=== PATIENT | female | born 1960 | race African-American/Black ===

== ENCOUNTER 2016-11-03 06:13 | Emergency (ER) | payer OTHER ==
[2016-11-03 06:44] VITALS: BP 105/65; PULSE 62; TEMP 98.5; BMI 21.4
[2016-11-03 07:14] LABS: URINE APPEARANCE SLCLOUDY; URINE BILIRUBIN NEGATIVE (NEGATIVE); URINE COLOR LTYELLOW; URINE GLUCOSE (UA) NEGATIVE (NEGATIVE); URINE KETONE NEGATIVE (NEGATIVE); URINE NITRITE NEGATIVE (NEGATIVE); URINE PROTEIN NEGATIVE (NEGATIVE); URINE UROBILINOGEN NEGATIVE E.U./dl (0.2-1.0)
[2016-11-03 07:16] LABS: URINE BLOOD 2+ (NEGATIVE); URINE LEUK ESTERASE 3+ (NEGATIVE)
[2016-11-03 07:18] LABS: URINE BACTERIA MODERATE /hpf (NONE SEEN); URINE RBC 73 /hpf (0-3); URINE WBC 172 /hpf (3-5)
--- NOTE | 2016-11-03 07:30 | PDOC ---
History of Present Illness - General Chief Complaint: Urinary Problem Stated Complaint: URINARY PROBLEM Time Seen by Provider: 11/03/16 07:25 History Source: Patient Exam Limitations: No Limitations - History of Present Illness Initial Comments: 11/03/16 07:30 This patient is a 56-year-old female with no significant past medical history presenting to the emergency department with a complaint of dysuria. Patient states she was in her usual state of health until this morning when she noted frequency, urgency and burning. Pt reports suprapubic pressure No lower abdominal pain No flank pain No fevers or chills Pt had a uti she believes she caught it from him PMH: denies PSH: right 5th finger surgery Meds: denies ALL: NKDA Social: denies alcohol, drug, cigarette use GENERAL/CONSTITUTIONAL: No: fever, chills, weakness, loss of appetite. GASTROINTESTINAL: No: nausea, vomiting, diarrhea, abdominal pain GENITOURINARY: Yes: dysuria, frequency, urgency No: flank pain. MUSCULOSKELETAL: No: back pain, neck pain, joint pain, muscle swelling or pain GENERAL: The patient is in no acute distress. ABDOMEN: Soft, nontender, normoactive bowel sounds. No guarding, no rebound. No CVA tenderness Past History - Past Medical History Allergies/Adverse Reactions: Allergies Allergy/AdvReac Type Severity Reaction Status Date / Time No Known Allergies Allergy Verified 11/03/16 06:40 Home Medications: Ambulatory Orders Nitrofurantoin Monohyd/M-Cryst [Macrobid -] 100 mg PO BID #14 capsule 11/03/16 Phenazopyridine HCl [Pyridium] 100 mg PO TID #6 tablet 11/03/16 - Psycho/Social/Smoking Cessation Hx Suicidal Ideation: No Smoking History: Former smoker Have you smoked in the past 12 months: No Information on smoking cessation initiated: No *Physical Exam - Vital Signs Last Vital Signs Temp Pulse Resp BP Pulse Ox 98.5 F 62 18 105/65 100 11/03/16 06:40 11/03/16 06:40 11/03/16 06:40 11/03/16 06:40 11/03/16 06:40 ED Treatment Course - ADDITIONAL ORDERS Additional order review: Laboratory Results 11/03/16 06:43 Urine Color Ltyellow Urine Appearance Slcloudy Urine pH 5.0 Urine Protein Negative Urine Glucose (UA) Negative Urine Ketones Negative Urine Blood 2+ H Urine Nitrite Negative Urine Bilirubin Negative Urine Urobilinogen Negative Ur Leukocyte Esterase 3+ H Medical Decision Making - Medical Decision Making 11/03/16 07:38 Pt has sensitivity to antibiotics she was given one 6 months ago when she previously had a uti She can not remember the name of that medication Will discharge to home Will ask pt to follow up with her PMD for cultures and sensitivities 11/03/16 07:49 Will discharge on Macrobid Pending cultures and sensitivities *DC/Admit/Observation/Transfer Diagnosis at time of Disposition: Urinary tract infection Qualifiers: Urinary tract infection type: acute cystitis Hematuria presence: without hematuria Qualified Code(s): N30.00 - Acute cystitis without hematuria - Discharge Dispostion Disposition: HOME Condition at time of disposition: Stable Admit: No Decision to Admit order Date/Time: 11/03/16 07:50 - Patient Instructions Printed Discharge Instructions: DI for Urinary Tract Infection (UTI) Additional Instructions: Thank you for coming in to the ER today Please take medications as prescribed Your pharmacy was not open for me to call them Return to the ER for fevers, chills, flank pain, any other concerns or complaints
--- NOTE | 2016-11-08 08:05 | PDOC ---
Patient Follow-up (Call Back) - Post ED Follow - Up Condition at time of discharge: Stable Disposition at time of original discharge: HOME Reason for Call Back: Abnwl. Microbiology (+ urine culture, on macrobid, susceptible, appropriate treatment.)
== END 2016-11-03 08:06 | disposition home or self-care (01) ==
LOC: JER 06:13
DX: N30.00 Acute cystitis without hematuria (principal)
CPT/HCPCS: 81003; 81015; 87086; 87186; 99282-25